=== PATIENT | female | born 1990 | race Caucasian/White ===

== ENCOUNTER 2016-12-01 19:04 | Emergency (ER) | payer BC, OTHER ==
[~2016-12-01] VITALS: Ht 175.3 cm; Wt 104.3 kg
[~2016-12-01 19:04] MED LIST: BIRTH CONTROL; CYCL10TA9 PO; NAPR-243 PO
[2016-12-01] MEDS ORDERED: methylPREDNISolone 125 MG (Solu-MEDROL) VIAL IVP ONE (19:30)
[2016-12-01] MEDS ORDERED: diphenhydrAMINE 50 MG/ML INJ (BENADRYL) IVP ONE (19:30)
[2016-12-01 19:59] LABS: BASOPHILS % (AUTO) 0 % (0-10); EOSINOPHILS % (AUTO) 0 % (0-10); LYMPHOCYTES # (AUTO) 2.2 X 10^3 (1.0-4.0); LYMPHOCYTES % (AUTO) 20 % (12-44); MEAN CORPUSCULAR HEMOGLOBIN 28 PG (25-34); MEAN CORPUSCULAR HGB CONC 33 G/DL (32-36); MEAN CORPUSCULAR VOLUME 85 FL (80-99); MEAN PLATELET VOLUME 11.4 FL (7.4-10.4); MONOCYTES # (AUTO) 0.8 X 10^3 (0.0-1.0); MONOCYTES % (AUTO) 8 % (0-12); NEUTROPHILS # (AUTO) 7.9 X 10^3 (1.8-7.8); NEUTROPHILS % (AUTO) 72 % (42-75); PLATELET COUNT 255 10^3/uL (130-400); RED BLOOD COUNT 4.94 10^6/uL (4.35-5.85); RED CELL DISTRIBUTION WIDTH 13.4 % (10.0-14.5)
[2016-12-01 20:31] LABS: TROPONIN I < 0.30 NG/ML (<0.30)
[2016-12-01 20:33] LABS: ALANINE AMINOTRANSFERASE 18 U/L (0-55); ALBUMIN 4.5 G/DL (3.2-4.5); ANION GAP 16 MMOL/L (5-14); ASPARTATE AMINO TRANSFERASE 17 U/L (5-34); BILIRUBIN,TOTAL 0.4 MG/DL (0.1-1.0); BLOOD UREA NITROGEN 13 MG/DL (7-18); BUN/CREATININE RATIO 17; CALCIUM 9.5 MG/DL (8.5-10.1); CARBON DIOXIDE 19 MMOL/L (21-32); CHLORIDE 105 MMOL/L (98-107); CREATININE SERUM 0.77 MG/DL (0.60-1.30); GFR ESTIMATED > 60; GLUCOSE 89 MG/DL (70-105); POTASSIUM 3.7 MMOL/L (3.6-5.0); SODIUM 140 MMOL/L (135-145); TOTAL PROTEIN 8.1 G/DL (6.4-8.2)
[2016-12-01] MEDS ORDERED: PRD10T PO (21:17)
[2016-12-01] MEDS ORDERED: AMOX-358 PO (21:17)
--- NOTE | 2016-12-01 21:17 | ED General ---
General Chief Complaint: Allergic Reaction Stated Complaint: CHEST PAIN, SOA Nursing Triage Note: PT REPORTS SHE HAS BEEN HAVING SOA AND CP AFTER STARTING CLARITHROMYCIN YESTERDAY FOR STREP THROAT. Nursing Sepsis Screen: No Definite Risk Source of Information: Patient History of Present Illness Time Seen by Provider: 19:14 Initial Comments PT ARRIVES VIA POV FROM HOME STATES SHE THINKS SHE IS HAVING AN ALLERGIC REACTION TO ANTIBIOTIC, CLARITHROMYCIN PT STATES SHE WAS STARTED ON THE ANTIBIOTIC YESTERDAY FOR STREP THROAT SEEN AT [facility] YESTERDAY FOR SORE THROAT SINCE Friday11/29/16--TESTED + FOR STREP THIS IS PT'S 4TH EPISODE SINCE JULY FOR STREP--WAS TREATED TWICE WITH ZITHROMAX, AND ONCE WITH AMOXIL--SYMPTOMS RESOLVED AFTER EACH EPISODE, THEN RETURN A FEW WEEKS LATER HAD FEVER FRIDAY NIGHT, BUT NONE SINCE PT STATES YESTERDAY AFTER STARTING ANTIBIOTIC, SHE BEGAN HAVING CHEST PAIN AND SHORTNESS OF BREATH. AND PAIN RADIATES TO RIGHT SHOULDER NO RASH NO ITCHING NO INCREASED DIFFICULTY SWALLOWING OTHER THAN ONGOING THROAT PAIN NO SWELLING OF LIPS/TONGUE/FACE OR ANYWHERE ELSE ON BODY SYMPTOMS ARE NO WORSE TODAY, JUST NOT BETTER HAS TAKEN NOTHING FOR SYMPTOMS NO PRIOR HISTORY OF SIMILAR REACTION PCP: [facility] Allergies and Home Medications Allergies Coded Allergies: No Known Drug Allergies (Unverified , 01/04/14) Home Medications (Reported) Amoxicillin/Potassium Clav 1 Each Tablet #20 1 EACH PO BID Prescribed by: DREW MELLO on 12/01/162116 Cyclobenzaprine Hcl 10 Mg Tablet #15 1 EACH PO Q8HR Prescribed by: DREW MELLO on 01/04/141914 Naproxen 500 Mg Tablet #20 1 EACH PO TID PRN PRN PAIN FOR PAIN Prescribed by: DREW MELLO on 01/04/141914 Prednisone 10 Mg Tab #12 40 MG PO DAILY Prescribed by: DREW MELLO on 12/01/162116 Constitutional: see HPI fever EENTM: see HPI throat pain throat swellingNo nose congestion Respiratory: see HPINo cough, short of breathNo wheezing Cardiovascular: see HPI chest painNo edema, No palpitations, No syncope, No vascular heart diseas Gastrointestinal: no symptoms reported Genitourinary: no symptoms reported Musculoskeletal: no symptoms reported Skin: no symptoms reported Psychiatric/Neurological: No Symptoms Reported Hematologic/Lymphatic: No Symptoms Reported Immunological/Allergic: no symptoms reported Past Aijlrxs-Nvirtm-Kxwtwh Hx Patient Social History Alcohol Use: Occasionally Uses Recreational Drug Use: No Smoking Status: Never a Smoker 2nd Hand Smoke Exposure: No Recent Foreign Travel: No Contact w/Someone Who Travel: No Recent Infectious Disease Expo: No Recent Hopitalizations: No Surgeries HX Surgeries: Yes (WISDOM TEETH) Respiratory Hx Respiratory Disorders: No Cardiovascular Hx Cardiac Disorders: No Neurological Hx Neurological Disorders: No Reproductive System Hx Reproductive Disorders: No Genitourinary Hx Genitourinary Disorders: No Gastrointestinal Hx Gastrointestinal Disorders: No Musculoskeletal Hx Musculoskeletal Disorders: No Endocrine Hx Endocrine Disorders: No HEENT HX ENT Disorders: Yes HEENT Disorders: Tonsilitis Cancer Hx Cancer: No Psychosocial Hx Psychiatric Problems: No Integumentary HX Skin/Integumentary Disorder: No Blood Transfusions Hx Blood Disorders: No Physical Exam Vital Signs Vital Sign - Last 12Hours 12/01/16 19:20 Temp 99.0 Pulse 114 Resp 20 B/P 133/93 Pulse Ox 99 Capillary Refill : Less Than 3 Seconds General Appearance: No Apparent Distress WD/WN Obese Other (DOES NOT APPEAR TO BE IN ANY DISCOMFORT OR DISTRESS) HEENT: PERRL/EOMI TMs Normal Pharyngeal Erythema Tonsillar Exudate Tonsillar Enlargement (+2/4 IN SIZE) Neck: Full Range of Motion Non Tender Supple Lymphadenopathy (L) (MILD ANTERIOR) Lymphadenopathy (R) (MILD ANTERIOR) Respiratory: Chest Non Tender Normal Breath Sounds No Accessory Muscle Use No Respiratory Distress Cardiovascular: Regular Rate, Rhythm No Edema No JVD No Murmur Normal Peripheral Pulses Gastrointestinal: Normal Bowel Sounds No Organomegaly No Pulsatile Mass Non Tender Soft Back: Normal Inspection Extremity: Normal Capillary Refill Normal Inspection Normal Range of Motion Non Tender No Calf Tenderness No Pedal Edema Neurologic/Psychiatric: Alert Oriented x3 No Motor/Sensory Deficits Normal Mood/Affect java development team lead II-XII Norm as Tested Skin: Normal Color Warm/DryNo Rash Progress/Results/Core Measures Results/Orders Lab Results Laboratory Tests Test 12/01/16 19:16 12/01/16 19:51 Range/Units Monoscreen NEGATIVE NEGATIVE Alanine Aminotransferase (ALT/SGPT) 18 0-55 U/L Albumin 4.5 3.2-4.5 G/DL Alkaline Phosphatase 71 40-136 U/L Anion Gap 16 H 5-14 MMOL/L Aspartate Amino Transf (AST/SGOT) 17 5-34 U/L B-Type Natriuretic Peptide < 10.0 <100.0 PG/ML BUN/Creatinine Ratio 17 Basophils # (Auto) 0.0 0.0-0.1 10^3/uL Basophils (%) (Auto) 0 0-10 % Blood Urea Nitrogen 13 7-18 MG/DL Calcium Level 9.5 8.5-10.1 MG/DL Carbon Dioxide Level 19 L 21-32 MMOL/L Chloride Level 105 98-107 MMOL/L Creatinine 0.77 0.60-1.30 MG/DL Eosinophils # (Auto) 0.0 0.0-0.3 10^3/uL Eosinophils (%) (Auto) 0 0-10 % Estimat Glomerular Filtration Rate > 60 Glucose Level 89 70-105 MG/DL Hematocrit 42 35-52 % Hemoglobin 14.0 11.5-16.0 G/DL Lymphocytes # (Auto) 2.2 1.0-4.0 X 10^3 Lymphocytes (%) (Auto) 20 12-44 % Mean Corpuscular Hemoglobin 28 25-34 PG Mean Corpuscular Hemoglobin Concent 33 32-36 G/DL Mean Corpuscular Volume 85 80-99 FL Mean Platelet Volume 11.4 H 7.4-10.4 FL Monocytes # (Auto) 0.8 0.0-1.0 X 10^3 Monocytes (%) (Auto) 8 0-12 % Neutrophils # (Auto) 7.9 H 1.8-7.8 X 10^3 Neutrophils (%) (Auto) 72 42-75 % Platelet Count 255 130-400 10^3/uL Potassium Level 3.7 3.6-5.0 MMOL/L Red Blood Count 4.94 4.35-5.85 10^6/uL Red Cell Distribution Width 13.4 10.0-14.5 % Serum Test, Qualitative NEGATIVE NEGATIVE Sodium Level 140 135-145 MMOL/L Total Bilirubin 0.4 0.1-1.0 MG/DL Total Protein 8.1 6.4-8.2 G/DL Troponin I < 0.30 <0.30 NG/ML White Blood Count 11.0 4.3-11.0 10^3/uL My Orders Orders-DREW MELLO DO Saline Lock/Iv-Start (12/01/16 19:14) Monitor-Rhythm Ecg Trace Only (12/01/16 19:14) BNP (12/01/16 19:20) Cbc With Automated Diff (12/01/16 19:20) Comprehensive Metabolic Panel (12/01/16 19:20) Hcg,Qualitative Serum (12/01/16 19:20) Monotest (12/01/16 19:20) Troponin I (12/01/16 19:20) Saline Lock/Iv-Start (12/01/16 19:20) Methylprednisolone Sod Succ (Solu-Medrol (12/01/16 19:30) Diphenhydramine Injection (Benadryl Inje (12/01/16 19:30) Amoxicillin/Clavulanate Tablet (Augmenti (12/02/16 07:00) Medications Given in ED Current Medications Medications Dose Ordered Sig/Tushar Route Start Time Stop Time Status Last Admin Dose Admin Diphenhydramine HCl 50 mg ONCE ONCE IVP 12/01/16 19:30 12/01/16 19:31 DC 12/01/16 19:33 50 MG Methylprednisolone Sodium Succinate 125 mg ONCE ONCE IVP 12/01/16 19:30 12/01/16 19:31 DC 12/01/16 19:33 125 MG Vital Signs/I&O Vital Sign - Last 12Hours 12/01/16 12/01/16 19:20 21:28 Temp 99.0 99.0 Pulse 114 100 Resp 20 20 B/P 133/93 Pulse Ox 99 99 Blood Pressure Mean: 106 Progress Note : Progress Note CHEST PAIN AND SHORTNESS OF BREATH RESOLVED AT DISMISSAL SLIGHT IMPROVEMENT IN THROAT PAIN ECG Initial ECG Impression Time: 19:12 Initial ECG Rate: 108 Initial ECG Rhythm: S.Tach Initial ECG Comparisson: No Previous ECG Available Diagnostic Imaging Comments Departure Impression Impression: Primary Impression: ADVERSE MEDICATION REACTION TO ANTIBIOTIC Additional Impression: Strep pharyngitis Disposition: 01 HOME, SELF-CARE Condition: Improved Departure-Patient Inst. Referrals: [facility] Patient Instructions: MEDICATION REACTION, Strep Throat (DC) Add. Discharge Instructions: STOP CLARITHROMYCIN LOTS OF CLEAR LIQUIDS FREQUENT SALT WATER GARGLES TYLENOL AND MOTRIN NEEDED FOR PAIN OR FEVER ACIDOPHILUS 2 PILLS 4 TIMES A DAY X 10 DAYS FOLLOW UP WITH [facility] IN 2-3 DAYS IF NO BETTER RETURN TO ER IF WORSE All discharge instructions reviewed with patient and/or family. Voiced understanding. Scripts Prednisone 10 Mg Tab40 Mg PO DAILY #12 TAB Prov:DREW MELLO DO 12/01/16 Amoxicillin/Potassium Clav (Augmentin 875-125 Tablet)1 Each Tablet1 Each PO BID INFECTION #20 TAB Prov:DREW MELLO DO 12/01/16 DREW MELLO DO Dec 01, 2016 21:17
[2016-12-01 21:28] VITALS: BP 130/89
[2016-12-02] MEDS ORDERED: AUGMENTIN 875 MG TAB (AMOXICILLIN/CLAVULANATE) PO SCH (07:00)
== END 2016-12-01 21:28 | disposition home or self-care (01) ==
LOC: EDUNIT# 19:04 → ER 19:06
DX: R06.02 Shortness of breath (principal); R07.89 Other chest pain; T36.3X5A Adverse effect of macrolides, initial encounter; J02.0 Streptococcal pharyngitis
CPT/HCPCS: 36415; 80053; 83880; 84484; 84703; 85025; 86308; 93041; 96374; 96375

== ENCOUNTER 2017-03-31 05:30 | Outpatient (CLI) | payer BC ==
[~2017-03-31] VITALS: Ht 175.3 cm; Wt 104.3 kg
[~2017-03-31 05:30] MED LIST changes: +AMOX-358 PO; +PRD10T PO
== END 2017-03-31 10:28 ==
LOC: PREOP 05:30
PROVIDERS: ATTEND Otolaryngology Otolaryngology/Facial Plastic Surgery
DX: Z01.818 Encounter for other preprocedural examination (principal); J35.01 Chronic tonsillitis; J35.3 Hypertrophy of tonsils with hypertrophy of adenoids

== ENCOUNTER 2017-04-04 05:54 | Day surgery (SDC) | payer BC ==
[~2017-04-04] VITALS: Ht 175.3 cm; Wt 104.3 kg
[2017-04-04] MEDS ORDERED: LACTATED RINGERS 1,000 ML IV PRN (06:22)
[2017-04-04] MEDS ORDERED: FAMOTIDINE 20MG/2ML IV (PEPCID) IV ONE (06:30)
[2017-04-04] MEDS ORDERED: SCOPOLAMINE 1.5 MG (TRANSDERM-SCOP) PATCH TOP ONE (06:30)
[2017-04-04] MEDS ORDERED: ONDANSETRON 4 MG/2 ML (SDV) Z0FRAN IV ONE (06:30)
[2017-04-04] MEDS ORDERED: proPOfol 200 MG/20 ML (DIPRIVAN) VIAL IV ONE (06:35)
[2017-04-04] MEDS ORDERED: HURRICAINE EXT TUBE (BENZOCAINE) ONE (06:35)
[2017-04-04] MEDS ORDERED: LIDOCAINE PF 2% 5 ML (XYLOCAINE) VIAL ONE (06:35)
[2017-04-04] MEDS ORDERED: DEXAMETHASONE PF 10 MG/ML (DECADRON) VIAL ONE (06:35)
[2017-04-04] MEDS ORDERED: fentaNYL INJECTION 100 MCG/2 ML AMP ONE ×2 (06:35→07:52)
[2017-04-04] MEDS ORDERED: MIDAZOLAM 2 MG/2 ML (VERSED) VIAL ONE (06:35)
[2017-04-04] MEDS ORDERED: SEVOFLURANE (ULTANE) 15 ML INHAL SOLN ONE ×3 (06:35→08:07)
--- NOTE | 2017-04-04 06:41 | Progress Note-Pre Operative ---
Pre-Operative Progress Note H&P Reviewed The H&P was reviewed, patient examined and no changes noted. Date Seen by Provider: Apr 04, 2017 Time Seen by Provider: : Date H&P Reviewed: Apr 04, 2017 Time H&P Reviewed: :30 Pre-Operative Diagnosis: T/A HYper with UAO, REc Tons SANJUANITA SILVA MD Apr 04, 2017 6:41 am
[2017-04-04] MEDS ORDERED: ATRACURIUM 50 MG/5 ML (TRACRIUM) IV ONE (06:43)
[2017-04-04 07:05] LABS: BASOPHILS % (AUTO) 0 % (0-10); EOSINOPHILS # (AUTO) 0.1 10^3/uL (0.0-0.3); EOSINOPHILS % (AUTO) 1 % (0-10); LYMPHOCYTES # (AUTO) 2.1 X 10^3 (1.0-4.0); LYMPHOCYTES % (AUTO) 31 % (12-44); MEAN CORPUSCULAR HEMOGLOBIN 28 PG (25-34); MEAN CORPUSCULAR HGB CONC 33 G/DL (32-36); MEAN CORPUSCULAR VOLUME 85 FL (80-99); MEAN PLATELET VOLUME 11.1 FL (7.4-10.4); MONOCYTES # (AUTO) 0.5 X 10^3 (0.0-1.0); MONOCYTES % (AUTO) 7 % (0-12); NEUTROPHILS # (AUTO) 4.3 X 10^3 (1.8-7.8); NEUTROPHILS % (AUTO) 62 % (42-75); PLATELET COUNT 250 10^3/uL (130-400); RED BLOOD COUNT 4.89 10^6/uL (4.35-5.85); RED CELL DISTRIBUTION WIDTH 13.3 % (10.0-14.5); WHITE BLOOD COUNT 6.9 10^3/uL (4.3-11.0)
[2017-04-04 07:06] VITALS: BP 155/98
[2017-04-04] MEDS ORDERED: morphine INJ 10 MG/ML 1ML (SYR OR VIAL) ONE (07:45)
[2017-04-04] MEDS ORDERED: GLYCOPYRROLATE 0.2 MG/ML (ROBINUL) 2 ML VIAL ONE (07:59)
[2017-04-04] MEDS ORDERED: NEOSTIGMINE (BLOXIVERZ ) 1 MG/1ML 10 ML VIAL ONE (08:00)
[2017-04-04] MEDS ORDERED: NS IV 1000 ML 1,000 ML IV SCH (08:07)
--- NOTE | 2017-04-04 08:07 | Progress Note-Post Operative ---
Post-Operative Progess Note Surgeon (s)/Can Bander Operator (s) Surgeon SANJUANITA SILVA MD Can Bander Operator n/a Pre-Operative Diagnosis T/A Hyper with UAO, Rec Tons Post-Operative Diagnosis same Post-Op Procedure Note Date of Procedure: Apr 04, 2017 Name of Procedure Performed: t/a Description & Findings Description and Findings: n/a Anesthesia Type get Estimated Blood Loss minimal Packing none. Specimen(s) collected/removed tonsils SANJUANITA SILVA MD Apr 04, 2017 8:07 am
[2017-04-04] MEDS ORDERED: APAP 325 MG/10.15 ML LIQ (TYLENOL) UDC PO PRN (08:15)
[2017-04-04] MEDS ORDERED: HYDROcodone/APAP 7.5MG-325 MG/15 ML (LORTAB) UDC PO PRN (08:15)
[2017-04-04] MEDS: morphine INJ 10 MG/ML 1ML (SYR OR VIAL) IVP PRN ×2 (08:20→08:32)
[2017-04-04] MEDS ORDERED: ONDANSETRON 4 MG/2 ML (SDV) Z0FRAN IVP PRN (08:30)
[2017-04-04 09:00] VITALS: BP 139/90
[2017-04-04] MEDS ORDERED: AMOX250S5 PO (09:10)
[2017-04-04] MEDS ORDERED: HYDR118S10 PO (09:10)
[2017-04-04] MEDS ORDERED: TETRACAINESUCKERS MT (09:10)
[2017-04-04] MEDS ORDERED: DEXAINTSOL PO (09:10)
[2017-04-04 09:30] VITALS: BP 129/90
[2017-04-04 10:00] VITALS: BP 125/89
== END 2017-04-04 11:10 | disposition home or self-care (01) ==
LOC: SDC 05:54
PROVIDERS: ATTEND Otolaryngology Otolaryngology/Facial Plastic Surgery
DX: J35.01 Chronic tonsillitis (principal)
CPT/HCPCS: 36415; 84703; 85025; 87081